=== PATIENT | female | born 1995 | race Caucasian/White ===

== ENCOUNTER 2016-06-13 17:05 | Emergency (ER) | payer SELFPAY ==
[2016-06-13 17:15] VITALS: O2SAT 99
[2016-06-13] MEDS ORDERED: Sodium Chloride 0.9% 1000 ML 1,000 ML IV STA (17:22)
--- NOTE | 2016-06-13 17:26 | ERPHSYRPT ---
- History of Present Illness Time Seen by Provider: 06/13/16 17:24 Source: patient Exam Limitations: no limitations Patient Subjective Stated Complaint: pt reports vomiting bile et mucous beginning amrit hr ago-denies unusual diarrhea-pt reports dizziness beginning yesterday-denies numbness or tingling-increases with physical activity Triage Nursing Assessment: pt pale warm et bos-[id number]-[id number] all questions appropriatley-moving all extremtiies with ease Physician History: pt reports vomiting bile et mucous beginning amrit hr ago-denies unusual diarrhea- pt reports dizziness beginning yesterday-denies numbness or tingling-increases with physical activity Timing/Duration: day(s) Severity: mild Associated Symptoms: loss of appetite, weakness Allergies/Adverse Reactions: ibuprofen Allergy (Intermediate, Verified 06/13/16 17:16) childhood Home Medications: No Home Meds 1 ea UD 06/13/16 [History] Hx Tetanus, Diphtheria Vaccination/Date Given: No Hx Influenza Vaccination/Date Given: No Hx Pneumococcal Vaccination/Date Given: No Immunizations Up to Date: Yes - Review of Systems Constitutional: Malaise, Weakness, No Fever, No Chills Eyes: No Symptoms Ears, Nose, & Throat: No Symptoms Respiratory: No Cough, No Dyspnea Cardiac: No Chest Pain, No Edema, No Syncope Abdominal/Gastrointestinal: No Abdominal Pain, No Nausea, No Vomiting, No Diarrhea Genitourinary Symptoms: No Dysuria Musculoskeletal: No Back Pain, No Neck Pain Skin: No Rash Neurological: Dizziness, No Focal Weakness, No Sensory Changes Psychological: No Symptoms Endocrine: No Symptoms All Other Systems: Reviewed and Negative - Past Medical History Pertinent Past Medical History: Yes Endocrine Medical History: Hypoglycemia - Past Surgical History Past Surgical History: Yes Gastrointestinal: Cholecystectomy - Social History Smoking Status: Never smoker Exposure to second hand smoke: No Drug Use: none Patient Lives Alone: No - Female History Hx Last Menstrual Period: last month - Nursing Vital Signs Nursing Vital Signs: Initial Vital Signs Temperature 97.9 F Temperature Source Oral Pulse Rate 76 Respiratory Rate 16 Blood Pressure [Right Arm] 99/56 Pain Intensity 0 - Physical Exam General Appearance: no apparent distress, alert Eye Exam: PERRL/EOMI, eyes nml inspection Ears, Nose, Throat Exam: normal ENT inspection, TMs normal, pharynx normal, moist mucous membranes Neck Exam: normal inspection, non-tender, supple, full range of motion Respiratory Exam: normal breath sounds, lungs clear, No respiratory distress Cardiovascular Exam: regular rate/rhythm, normal heart sounds, normal peripheral pulses Gastrointestinal/Abdomen Exam: soft, normal bowel sounds, No tenderness, No mass Back Exam: normal inspection, normal range of motion, No CVA tenderness, No vertebral tenderness Extremity Exam: normal inspection, normal range of motion, pelvis stable Neurologic Exam: alert, oriented x 3, cooperative, normal mood/affect, nml cerebellar function, nml station & gait, sensation nml, No motor deficits Skin Exam: normal color, warm, dry, No rash Lymphatic Exam: No adenopathy SpO2: 99 Oxygen Delivery: Room Air - Course Nursing assessment & vital signs reviewed: Yes Ordered Tests: Active Orders 24 hr Category Date Time Status Clean Catch Urine Specimen STAT Care 06/13/16 17:29 Active IV Insertion STAT Care 06/13/16 17:28 Active CBC W DIFF Stat Lab 06/13/16 17:15 Completed CMP Stat Lab 06/13/16 17:15 Received HCG QUALITATIVE,SERUM Stat Lab 06/13/16 17:15 Completed UA W/ MICROSCOPIC Stat Lab 06/13/16 17:15 Completed Medication Summary Generic Name Dose Route Start Last Admin Trade Name Freq PRN Reason Stop Dose Admin Sodium Chloride 1,000 mls @ 999 mls/hr 06/13/16 17:22 06/13/16 17:30 Sodium Chloride 0.9% 1000 Ml IV 06/13/16 18:22 999 mls/hr .Q1H1M STA Administration Ceftriaxone Sodium/Dextrose 50 mls @ 100 mls/hr 06/13/16 17:58 06/13/16 18:01 Rocephin 1 Gm-D5w 50 Ml Bag IV 06/13/16 18:27 100 mls/hr STAT ONE Administration Discontinued Medications Generic Name Dose Route Start Last Admin Trade Name Freq PRN Reason Stop Dose Admin Sodium Chloride Confirm 06/13/16 17:27 Sodium Chloride 0.9% 1000 Ml Administered 06/13/16 17:28 Dose 1,000 mls @ ud .ROUTE .STK-MED ONE Ceftriaxone Sodium/Dextrose Confirm 06/13/16 17:58 Rocephin 1 Gm-D5w 50 Ml Bag Administered 06/13/16 17:59 Dose 50 mls @ ud IV .STK-MED ONE Lab/Rad Data: Laboratory Result Diagrams 06/13/16 17:15 Laboratory Results 06/13/16 06/13/16 06/13/16 Range/Units 17:15 17:15 17:15 WBC 9.4 (4.0-10.5) K/mm3 RBC 4.83 (4.1-5.4) M/mm3 Hgb 14.2 (12.0-16.0) gm/dl Hct 42.5 (35-47) % MCV 88.0 (78-100) fl MCH 29.4 (26-32) pg MCHC 33.4 (32-36) g/dl RDW 12.2 (11.5-14.0) % Plt Count 208 (150-450) K/mm3 MPV 11.9 H (6-9.5) fl Gran % 71.0 H (36.0-66.0) % Lymphocytes % 21.1 L (24.0-44.0) % Monocytes % 7.0 (0.0-12.0) % Eosinophils % 0.7 (0.00-5.0) % Basophils % 0.2 (0.0-0.4) % Basophils # 0.02 (0-0.4) Serum , Qual NEGATIVE (Negative) Ur Collection Type CLEAN CATCH Urine Color YELLOW (YELLOW) Urine Appearance SLIGHTLY CLOUDY (CLEAR) Urine pH 6.5 (5-6) Ur Specific [place] 1.010 (1.005-1.025) Urine Protein NEGATIVE (Negative) Urine Glucose (UA) NEGATIVE (NEGATIVE) mg/dL Urine Ketones NEGATIVE (NEGATIVE) Urine Nitrite NEGATIVE (NEGATIVE) Urine Bilirubin NEGATIVE (NEGATIVE) Urine Urobilinogen 0.2 (0-1) mg/dL Urine WBC (Auto) LARGE (NEGATIVE) Urine RBC (Auto) TRACE HEMOLYZED (0-5) Altaf/ul Urine Microscopic WBC 25-50 (0-5) /HPF Ur Epithelial Cells FEW (FEW) /HPF Urine Bacteria MODERATE (NEGATIVE) /HPF Specimen Received 06/13/16:1715 - Progress Progress: improved Counseled pt/family regarding: lab results, diagnosis, need for follow-up - Departure Time of Disposition: 18:03 Departure Disposition: Home Clinical Impression: Urinary tract disease Condition: Stable Critical Care Time: No Referrals: DENISE BRITT MD [Primary Care Provider] - Instructions: Urinary Tract Infection (UTI) Additional Instructions: URINARY TRACT INFECTION 1. You will need to drink plenty of fluids in order to keep your urinary system flushed. These fluids should mainly consist of water and juices. 2. Take medications as directed. You need to completely finish any antiobiotic prescription given. 3. Try to avoid coffee, tea, alcohol, and seasoned foods as they may cause bladder irritation. 4. If signs and symptoms persist after 3-4 days, you will need to follow up with your family physician. 5. Female Patients: A. Avoid intercourse for 3-4 days. B. Empty bladder before and after intercourse to reduce risk of re- infection. C. After emptying bladder, wipe from front to back to reduce the risk of re- infection. Please follow the instructions given to you. Please take your medication as prescribed if given. If symptoms recur or get worse, come back to the emergency room if you cannot reach your primary care physician, or call your primary care physician for an appointment. Again if your symptoms get worse, come back to the emergency room. Thanks for visiting emergency room, and let us take care of you. Prescriptions: Ciprofloxacin HCl 500 mg [Cipro 500 MG] 500 mg PO BIDAC #20 tablet
[2016-06-13] MEDS ORDERED: Sodium Chloride 0.9% 1000 ML 1,000 ML ONE (17:27)
[2016-06-13 17:48] LABS: Bacteria MODERATE /HPF (NEGATIVE); COMPLETE URINE MICROSCOPIC? YES; Collection Type CLEAN CATCH; Epithelial Cells FEW /HPF (FEW); Ph 6.5 (5-6); WBC 25-50 /HPF (0-5)
[2016-06-13 17:55] LABS: BASOPHIL % 0.2 % (0.0-0.4); Eosinophil % 0.7 % (0.00-5.0); Lymphocytes % 21.1 % (24.0-44.0); Mean Corpuscular Hemoglobin 29.4 pg (26-32); Mean Platelet Volume 11.9 fl (6-9.5); Platelet Count 208 K/mm3 (150-450); Red Blood Count 4.83 M/mm3 (4.1-5.4); Red Cell Distribution Width 12.2 % (11.5-14.0); White Blood Count 9.4 K/mm3 (4.0-10.5)
[2016-06-13] MEDS ORDERED: ROCEPHIN 1 Gm-D5w 50 ml Bag** 50 ML IV ONE ×2 (17:58)
[2016-06-13 18:02] VITALS: BP 99/56; PULSE 76
[2016-06-13 18:05] LABS: ALBUMIN 4.5 g/dL (3.4-5.0); ALKALINE PHOSPHATASE 73 U/L (46-116); ANION GAP 15.7 MEQ/L (5-15); BILIRUBIN,TOTAL 1.5 mg/dL (0.2-1.0); BLOOD UREA NITROGEN 11 mg/dL (9-20); CHLORIDE 102 mEq/L (98-107); Carbon Dioxide 23.1 mEq/L (21-32); Glucose 83 MG/DL (70-110); Potassium 4.1 mEq/L (3.5-5.1); SGOT/AST 13 U/L (15-37); SGPT/ALT 18 U/L (12-78); SODIUM 137 mEq/L (136-145); Total Protein 8.1 gm/dL (6.4-8.2)
== END 2016-06-13 18:50 | disposition home or self-care (01) ==
LOC: ED 17:05
DX: N39.0 Urinary tract infection, site not specified (principal); R11.10 Vomiting, unspecified; R42 Dizziness and giddiness
CPT/HCPCS: 36000; 36415; 80053; 81000; 84703; 85025; 96360; 96365; 99283; 99284; J0696